=== PATIENT | male | born 1950 | race Caucasian/White ===

== ENCOUNTER 2023-06-24 13:39 | Day surgery (SDC) | payer MEDICARE, BC ==
[2023-06-24] VITALS (11 sets, daily range): BP systolic 113–168; BP diastolic 55–72; PULSE 52–63; RESP 14–17; TEMP 98; O2SAT 94–99
[~2023-06-24] VITALS: Ht 182.9 cm; Wt 84.1 kg
[~2023-06-24 13:39] MED LIST: MECL-302 PO; ONDA4TAB12 PO
[2023-06-24] MEDS ORDERED: fentaNYL/PF 50MCG/1 ML 2ML syringe IV ONE (14:00)
[2023-06-24] MEDS ORDERED: normal saline 1000ml 1,000 ML IV SCH (14:00)
[2023-06-24] MEDS ORDERED: MIDAZolam 1mg/ml 10ml vial IV ONE (14:00)
[2023-06-24] MEDS ORDERED: NITR100C11 PO (14:11)
[2023-06-24] MEDS ORDERED: PANT40TA54 PO (14:11)
[2023-06-24] MEDS ORDERED: LOSA25TA41 PO (14:12)
[2023-06-24] MEDS ORDERED: ASPI81TA52 PO (14:12)
== END 2023-06-24 16:00 | disposition home or self-care (01) ==
LOC: SSTAY O 13:39
PROVIDERS: ATTEND Student in an Organized Health Care Education/Training Program
DX: I08.3 Combined rheumatic disorders of mitral, aortic and tricuspid valves (principal); I48.0 Paroxysmal atrial fibrillation; I95.1 Orthostatic hypotension; Z79.899 Other long term (current) drug therapy; Z79.82 Long term (current) use of aspirin; Z98.890 Other specified postprocedural states
CPT/HCPCS: 93312; 93325; J2250; J7030; A4620